=== PATIENT | male | born 1985 | race Caucasian/White ===

== ENCOUNTER 2019-03-24 18:20 | Emergency (ER) | payer OTHER ==
[~2019-03-24] VITALS: Ht 167.6 cm; Wt 100.7 kg
== END 2019-03-24 20:33 | disposition home or self-care (01) ==
LOC: ER 18:20
DX: S60.221A Contusion of right hand, initial encounter (principal); W20.8XXA Other cause of strike by thrown, projected or falling object, initial encounter; Y93.89 Activity, other specified; Y92.89 Other specified places as the place of occurrence of the external cause; Y99.8 Other external cause status

== ENCOUNTER 2019-04-12 13:05 | Emergency (ER) | payer OTHER ==
[~2019-04-12] VITALS: Ht 185.4 cm; Wt 99.8 kg
== END 2019-04-12 16:01 | disposition home or self-care (01) ==
LOC: ER 13:05
DX: M54.5 Low back pain (principal); J11.1 Influenza due to unidentified influenza virus with other respiratory manifestations

== ENCOUNTER 2024-01-29 15:42 | Emergency (ER) | payer OTHER ==
[~2024-01-29] VITALS: Ht 185.4 cm; Wt 98.4 kg
[2024-01-29 15:52] VITALS: BP 125/84; O2SAT 97
[2024-01-29 18:07] LABS: HEMATOCRIT 42.3 % (39.0-48.0); HEMOGLOBIN 14.7 g/dL (13-16.00); MEAN CELL VOLUME 85.7 fL (80.0-100.00); MEAN CORPUSCULAR HEMOGLOBIN 29.7 pg (27.00-32.0); MEAN CORPUSCULAR HGB CONC 34.7 g/dl (32.0-36.0); PLATELET COUNT 243 K/uL (150-450); RED BLOOD COUNT 4.93 M/uL (4.00-6.00); RED CELL DISTRIBUTION WIDTH 13.9 % (11.5-14.5)
[2024-01-29 18:35] LABS: ALBUMIN 4.1 gm/dL (3.4-5.0); BILIRUBIN TOTAL 0.34 mg/dL (0.3-1.2); CALCIUM 9.2 mg/dL (8.5-10.1); CREATININE SERUM 1.01 mg/dL (0.70-1.30); GFR 83.12; GLOBULINA 3.9 G/DL (2.4-3.5); POTASSIUM 4.09 mEq/L (3.5-5.1)
[2024-01-29 18:39] LABS: URINE APPEARANCE Clear; URINE BILIRRUBIN Negative (NEGATIVE); URINE BLOOD Trace; URINE COLOR Yellow; URINE GLUCOSE Negative (NEGATIVE); URINE KETONE Negative (NEGATIVE); URINE LEUKOCYTE Negative; URINE NITRATE Negative; URINE PROTEIN Negative (NEGATIVE); URINE UROBILINOGEN 0.2 E.U./dl
[2024-01-29 18:44] LABS: URINE BACTERIA 3.7 uL (0.0-1933); URINE CAST 0.15 uL (0.0-1.40); URINE EPITHELIAL CELLS 1.3 uL (0.0-38.8); URINE RBC 7.7 uL (0.0-20.8); URINE WBC 0.7 uL (0.0-23.2)
== END 2024-01-29 23:43 | disposition home or self-care (01) ==
LOC: ER 15:44
PROVIDERS: Preventive Medicine Public Health & General Preventive Medicine
DX: R55 Syncope and collapse (principal); R53.83 Other fatigue; J34.1 Cyst and mucocele of nose and nasal sinus

== ENCOUNTER → 2025-02-11 | Emergency (ER) | payer OTHER ==
[~2025-02-11] VITALS: Ht 185.4 cm; Wt 102.1 kg
[~2025-02-11] MED LIST: ACETAMINOPHEN 500 MG GEL..CAP PO STA; DILTIAZEM HCL 25 MG/5 ML VIAL IV STA; LABETALOL HCL 100 MG/20 ML ML IV STA
[2025-02-11 17:59] LABS: BASO % 0.5 % (0.1-1.2); EOS # 0.10 (0.04-0.54); EOS % 1.4 % (0.7-7.0); LYMPH # 2.67 (1.18-3.74); LYMPH % 36.2 % (19.3-53.1); MEAN PLATELET VOLUME 9.10 fl (9.4-12.4); MONO # 0.56 (0.24-0.82); MONO % 7.6 % (4.7-12.5); NEUT # 3.96 (1.56-6.13); NEUT % 53.6 % (34.0-71.1); RED CELL DISTRIBUTION WIDTH 12.2 % (11.6-14.4)
[2025-02-11 18:19] LABS: INR 0.98
[2025-02-11 18:24] LABS: ALT/SGPT 171.0 U/L (12-78); AST/SGOT 69.0 U/L (15-37); BILIRUBIN TOTAL 0.49 mg/dL (0.3-1.2); BUN CREA RATIO 20.0 (7.0-25.0); CREATININE SERUM 1.05 mg/dL (0.70-1.30); GFR 79.05; GLOBULINA 4.0 G/DL (2.4-3.5); GLUCOSE FASTING 111.0 mg/dL (65-100); OSMOLALITY SERUM 279.0 MOSM/KG (275-295)
[2025-02-11 19:33] LABS: COVID-19 AG NEGATIVE (NEGATIVE)
[2025-02-11 21:08] LABS: URINE APPEARANCE Clear; URINE BILIRRUBIN Negative (NEGATIVE); URINE BLOOD Negative; URINE COLOR Yellow; URINE GLUCOSE Negative (NEGATIVE); URINE KETONE Negative (NEGATIVE); URINE LEUKOCYTE Negative; URINE NITRATE Negative; URINE PROTEIN Trace (NEGATIVE); URINE UROBILINOGEN 0.2 E.U./dl
[2025-02-11 21:14] LABS: URINE RBC 8.2 uL (0.0-20.8)
[2025-02-11 21:17] LABS: URINE BACTERIA 0 uL (0.0-1933); URINE CAST 0.00 uL (0.0-1.40); URINE EPITHELIAL CELLS 0.4 uL (0.0-38.8); URINE WBC 1.5 uL (0.0-23.2)
[2025-02-11 21:26] LABS: COCAINE POSITIVE (NEGATIVE); METHADONE NEGATIVE (NEGATIVE); OPIATES NEGATIVE (NEGATIVE); THC ( Cannabinoids) NEGATIVE (NEGATIVE)
== END | disposition home or self-care (01) ==
LOC: ER 16:50
PROVIDERS: Physician Assistant Medical
DX: R07.9 Chest pain, unspecified (principal); I16.9 Hypertensive crisis, unspecified; F14.90 Cocaine use, unspecified, uncomplicated; Z20.822 Contact with and (suspected) exposure to COVID-19